=== PATIENT | male | born 1940 | race Caucasian/White ===

== ENCOUNTER 2016-04-07 05:42 | Emergency (ER) | payer OTHER ==
[~2016-04-07] VITALS: Ht 172.7 cm; Wt 95.5 kg
[~2016-04-07 05:42] MED LIST: ALLO300 PO; APRI0.372 PO; CARD120C4 PO; CYCL1TAB29 PO; FURO20TA PO; GABA300C5 PO; GLIP5TAB8 PO; GUAI400T8 PO; HYDR-3366 PO; IPRAAER INH; IPRASOL NEB; LOVA40TA PO; OMEP20TA PO; PRED20 PO; PRIM50TA5 PO; TEMA15CA PO
[2016-04-07 05:43] VITALS: BP 124/71; PULSE 104; RESP 16; TEMP 98; O2SAT 92
[2016-04-07 06:42] VITALS: BP 135/63; PULSE 89; RESP 22; O2SAT 98
[2016-04-07] MEDS ORDERED: BENA25TA3 PO (07:54)
[2016-04-07] MEDS ORDERED: PRED20 PO (07:54)
--- NOTE | 2016-04-07 07:54 | PD ---
HPI Chief Complaint: Skin Problem Time Seen by Provider: 07:30 Travel History International Travel<30 days: No Contact w/Intl Traveler<30days: No Traveled to known affect area: No History of Present Illness HPI 76-year-old man who presents to the emergency department complaining of pruritic rash. 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 Received a couple doses of chemotherapy through the port, and is given a follow- up with hematology as an outpatient. He developed this pruritic red rash couple days ago. Initially started around the port and then spread widely. His last chemotherapy was the . He is following up with oncology on the second. He otherwise has been feeling generally well. No fevers. No change in baseline cough or trouble breathing. History Past Medical History Narrative Medical Right lung mass, small cell lung CA, bone metastases on imaging COPD Diabetes Hypertension Neuropathy BPH Social History Alcohol Use: No Tobacco Use: No Allergies-Medications (Allergen,Severity, Reaction): Coded Allergies: No Known Allergies (Unverified , 04/07/16) Reported Meds & Prescriptions Reported Meds & Active Scripts Active Zyloprim (Allopurinol) 300 Mg Tab 300 Mg PO BID Prednisone 20 Mg Tab 20 Mg PO DAILY Furosemide 20 Mg Tab 20 Mg PO DAILY Cardizem CD 24 HR (Diltiazem CD 24 HR) 120 Mg Caper 120 Mg PO DAILY Reported Temazepam 15 Mg Cap 15 Mg PO HS PRN Primidone 50 Mg Tab 50 Mg PO TID Omeprazole 20 Mg Tab 20 Mg PO DAILY Apriso (Mesalamine) 0.375 Gm Caper 1.5 Gm PO DAILY Lovastatin 40 Mg Tab 40 Mg PO DAILY [place] (Hydrocodone-Acetaminophen) 10-325 Mg Tab 1 Tab PO TID PRN Guaifenesin 400 Mg Tab 400 Mg PO TID Glipizide 5 Mg Tab 5 Mg PO DAILY Take 30 minutes before a meal Gabapentin 300 Mg Cap 600 Mg PO TID Flexeril (Cyclobenzaprine HCl) 10 Mg Tab 10 Mg PO TID Duoneb (Ipratropium-Albuterol Neb) 0.5-2.5 Mg/3 Ml Neb 1 Vial NEB Q6HR PRN Combivent Respimat Inh (Ipratropium-Albuterol Inh) 20-100 Intermediate/Act Aero 1 Puff INH QID Review of Systems Except as stated in HPI: all other systems reviewed are Neg Physical Exam Narrative GENERAL: Well-appearing 76-year-old man, no acute distress. SKIN: Warm and dry. Widespread urticarial rash involving the chest extremities and back, somewhat concentrated around the area of the report. Very pruritic. No vesicles pustules or other abnormality. HEAD: Atraumatic. Normocephalic. CARDIOVASCULAR: Regular rate and rhythm. No murmur appreciated. RESPIRATORY: No accessory muscle use. Clear to auscultation. Breath sounds equal bilaterally. GASTROINTESTINAL: Abdomen soft, non-tender, nondistended. Hepatic and splenic margins not palpable. MUSCULOSKELETAL: No obvious deformities. No edema. NEUROLOGICAL: Awake and alert. No obvious cranial nerve deficits. Motor grossly within normal limits. Normal speech. PSYCHIATRIC: Appropriate mood and affect; insight and judgment normal. Data Data Last Documented VS Vital Signs Date Time Temp Pulse Resp B/P Pulse Ox O2 Delivery O2 Flow Rate FiO2 04/07/16 06:42 89 22 135/63 98 Room Air 04/07/16 05:43 98.0 MDM Medical Decision Making Medical Screen Exam Complete: Yes Emergency Medical Condition: Yes Differential Diagnosis Urticaria, infection, vasculitis, other Narrative Course Medical decision making 76-year-old male with pruritic urticarial rash on his trunk and extremities. Suspect allergic reaction. We'll treat antihistamines and steroids. He has an appointment with his oncologist on Saturday. Return to the emergency department for any new or worsening symptoms. Diagnosis Primary Impression: Urticaria Additional Instructions: Take prednisone as prescribed. Take Benadryl as prescribed. Follow-up with your oncologist on Saturday. Return to the emergency department for any fevers or chills, if the rash changes character at all or develops blisters or pustules, or if he developed any new or worsening symptoms. Med/Other Pt SpecificInfo: Prescription(s) given Scripts Diphenhydramine (Benadryl Allergy)25 Mg Tab50 Mg PO Q8HR PRN (ALLERGIES) #20 TAB Ref 0 Prov:Henry Daley MD 04/07/16 Prednisone 20 Mg Tab20 Mg PO BID 5 Days Ref 0 Prov:Henry Daley MD 04/07/16 Disposition: 01 DISCHARGE HOME Condition: Stable Henry Daley MD Apr 07, 2016 07:54
[2016-04-07 08:00] VITALS: BP 137/65; PULSE 84; RESP 17; O2SAT 96
[2016-04-07] MEDS ORDERED: methylPREDNISolone SOD SUCC 125 MG/2 ML VIAL IM SCH (09:00)
== END 2016-04-07 09:08 | disposition home or self-care (01) ==
LOC: NEPC 05:42
DX: L50.9 Urticaria, unspecified (principal); J44.9 Chronic obstructive pulmonary disease, unspecified; I10 Essential (primary) hypertension; C34.91 Malignant neoplasm of unspecified part of right bronchus or lung; C79.51 Secondary malignant neoplasm of bone
CPT/HCPCS: 96372; 99282; J2930

== ENCOUNTER 2016-06-07 16:36 | Emergency (ER) | payer OTHER ==
[~2016-06-07] VITALS: Ht 172.7 cm; Wt 94.0 kg
[~2016-06-07 16:36] MED LIST changes: +BENA25TA3 PO
[2016-06-07 16:39] VITALS: BP 147/69; PULSE 99; RESP 18; TEMP 98.1; O2SAT 95
[2016-06-07] MEDS ORDERED: SODIUM CHLOR 0.9% 1000 ML INJ 1,000 ML IV SCH (17:40)
[2016-06-07 17:43] VITALS: O2SAT 98
--- NOTE | 2016-06-07 17:43 | PD ---
HPI Chief Complaint: Flank/Kidney Pain Time Seen by Provider: 17:13 Travel History International Travel<30 days: No Contact w/Intl Traveler<30days: No Traveled to known affect area: No History of Present Illness HPI This is a 76-year-old male who has a history of metastatic small cell lung cancer on chemotherapy who presents to the emergency department with right sided flank pain and abdominal pain that started 2 days ago, constant, worsening , described as a sharp pain that goes from his back into his right abdomen. He says the pain is worse with movement and with taking deep breaths. It improved with rest. He denies any associated nausea, vomiting, fevers, chills or diarrhea. He did have chemotherapy one week ago. He has never Had kidney stones. He has no history of abdominal surgery. PFSH Past Medical History Cancer: Yes (SMALL CELL LUNG CANCER) Chemotherapy: Yes (03/24/16) Congestive Heart Failure: No COPD: Yes Coronary Artery Disease: No Diabetes: Yes Patient Takes Glucophage: Yes Diminished Hearing: No Hypertension: Yes Implanted Vascular Access Dvce: Yes (PORT RIGHT CHEST) Neurologic: Yes (NEUROPATHY) Ulcer: Yes Influenza Vaccination: Yes Past Surgical History Other Surgery: Yes (PORT PLACED TO RIGHT CHEST) Social History Alcohol Use: No Tobacco Use: No Substance Use: No Allergies-Medications (Allergen,Severity, Reaction): Coded Allergies: No Known Allergies (Unverified , 06/07/16) Reported Meds & Prescriptions Reported Meds & Active Scripts Active Benadryl Allergy (Diphenhydramine HCl) 25 Mg Tab 50 Mg PO Q8HR PRN Prednisone 20 Mg Tab 20 Mg PO BID 5 Days Zyloprim (Allopurinol) 300 Mg Tab 300 Mg PO BID Prednisone 20 Mg Tab 20 Mg PO DAILY Furosemide 20 Mg Tab 20 Mg PO DAILY Cardizem CD 24 HR (Diltiazem CD 24 HR) 120 Mg Caper 120 Mg PO DAILY Reported Temazepam 15 Mg Cap 15 Mg PO HS PRN Primidone 50 Mg Tab 50 Mg PO TID Omeprazole 20 Mg Tab 20 Mg PO DAILY [place] (Mesalamine) 0.375 Gm Caper 1.5 Gm PO DAILY Lovastatin 40 Mg Tab 40 Mg PO DAILY [place] (Hydrocodone-Acetaminophen) 10-325 Mg Tab 1 Tab PO TID PRN Guaifenesin 400 Mg Tab 400 Mg PO TID Glipizide 5 Mg Tab 5 Mg PO DAILY Take 30 minutes before a meal Gabapentin 300 Mg Cap 600 Mg PO TID Flexeril (Cyclobenzaprine HCl) 10 Mg Tab 10 Mg PO TID Duoneb (Ipratropium-Albuterol Neb) 0.5-2.5 Mg/3 Ml Neb 1 Vial NEB Q6HR PRN Combivent Respimat Inh (Ipratropium-Albuterol Inh) 20-100 [place]/Act Aero 1 Puff INH QID Review of Systems Except as stated in HPI: all other systems reviewed are Neg Physical Exam Narrative GENERAL:Well appearing, no acute distress SKIN: Warm and dry. HEAD: Atraumatic. Normocephalic. EYES: Pupils equal and round. No injection or drainage. ENT: Moist mucous membranes NECK: Trachea midline. CARDIOVASCULAR: Regular rate and rhythm. No murmur appreciated. RESPIRATORY: Clear to auscultation. Breath sounds equal bilaterally. GASTROINTESTINAL: Abdomen soft, tender to palpation in the right upper quadrant and right lower quadrants with some guarding : Right CVA tenderness MUSCULOSKELETAL: No obvious deformities. NEUROLOGICAL: Awake and alert. No obvious cranial nerve deficits. Moving all extremities. PSYCHIATRIC: Appropriate mood and affect; insight and judgment normal. Data Data Last Documented VS Vital Signs Date Time Temp Pulse Resp B/P Pulse Ox O2 Delivery O2 Flow Rate FiO2 06/07/16 17:43 98 Room Air 06/07/16 16:39 98.1 99 18 147/69 Orders Complete Blood Count With Diff (06/07/16 17:40) Comprehensive Metabolic Panel (06/07/16 17:40) Urinalysis - C+S If Indicated (06/07/16 17:40) Ct Abd/Pel W Iv Contrast(Rout) (06/07/16 17:40) Iv Access Insert/Monitor (06/07/16 17:40) Ecg Monitoring (06/07/16 17:40) Oximetry (06/07/16 17:40) Morphine Inj (Morphine Inj) (06/07/16 17:45) Ondansetron Inj (Zofran Inj) (06/07/16 17:45) Sodium Chlor 0.9% 1000 Ml Inj (Ns 1000 M (06/07/16 17:40) Sodium Chloride 0.9% Flush (Ns Flush) (06/07/16 17:45) Iohexol 350 Inj (Omnipaque 350 Inj) (06/07/16 19:04) Labs Laboratory Tests Test 06/07/16 17:57 White Blood Count 13.5 TH/MM3 Red Blood Count 2.55 MIL/MM3 Hemoglobin 7.4 GM/DL Hematocrit 23.0 % Mean Corpuscular Volume 90.1 FL Mean Corpuscular Hemoglobin 29.1 PG Mean Corpuscular Hemoglobin 32.3 % Concent Red Cell Distribution Width 20.4 % Platelet Count 123 TH/MM3 Mean Platelet Volume 8.2 FL Neutrophils (%) (Auto) 66.6 % Lymphocytes (%) (Auto) 22.9 % Monocytes (%) (Auto) 9.3 % Eosinophils (%) (Auto) 0.1 % Basophils (%) (Auto) 1.1 % Neutrophils # (Auto) 9.0 TH/MM3 Lymphocytes # (Auto) 3.1 TH/MM3 Monocytes # (Auto) 1.3 TH/MM3 Eosinophils # (Auto) 0.0 TH/MM3 Basophils # (Auto) 0.1 TH/MM3 CBC Comment DIFF FINAL Differential Comment Sodium Level 136 MEQ/L Potassium Level 3.3 MEQ/L Chloride Level 101 MEQ/L Carbon Dioxide Level 26.9 MEQ/L Anion Gap 8 MEQ/L Blood Urea Nitrogen 15 MG/DL Creatinine 0.83 MG/DL Estimat Glomerular Filtration 90 ML/MIN Rate Random Glucose 190 MG/DL Calcium Level 8.2 MG/DL Total Bilirubin 0.2 MG/DL Aspartate Amino Transf 7 U/L (AST/SGOT) Alanine Aminotransferase 14 U/L (ALT/SGPT) Alkaline Phosphatase 166 U/L Total Protein 6.6 GM/DL Albumin 2.9 GM/DL [facility] Medical Decision Making Medical Screen Exam Complete: Yes Emergency Medical Condition: Yes Interpretation(s) Afebrile, mild tachycardia, hypertensive Leukocytosis unchanged from yesterday Anemia similar to prior Mild hypokalemia Last 24 hours Impressions Abdomen/Pelvis CT 06/07/16 [id number] Signed Impressions: Service Date/Time: May 19:00 - CONCLUSION: 1. Widespread osseous blastic metastases. I'm also concerned there are small hepatic metastatic lesions. Focal pathologic fracture superior endplate of T12. 2. Abdominal aortic aneurysm measuring up to 4.7 cm in size. There is chronic appearing mural thrombus. No findings to support leak or imminent rupture. Deondre Agrawal MD Differential Diagnosis Cholecystitis, appendicitis, obstructive uropathy, nephrolithiasis, referred pain Narrative Course This is a 76-year-old male who was a history of metastatic small cell lung cancer on chemotherapy by Dr. Ann who presents to the emergency department with right sided back and abdominal pain. He was placed in a monitor and an IV was established. He was given IV opiates for pain. His labs are similar to prior. CT imaging demonstrates a focal pathologic fracture at the superior endplate of T12 as well as small hepatic metastatic lesions both of which could be the etiology of the patient's pain. We discussed a TLSO brace but the patient is active and would prefer to try management without the brace which I think is reasonable as this appears to be a stable fracture. Patient will be discharged with oxycodone for pain and was asked to follow-up with his oncologist as soon as possible. The patient does have an abdominal aortic aneurysm which appears chronic and does not appear to be the etiology of this pain. In light of the patient's metastatic cancer certainly risks versus benefits of repair will need to be discussed in the outpatient setting. Diagnosis Primary Impression: Closed T12 fracture Qualified Code: S22.088A - Other closed fracture of twelfth thoracic vertebra , initial encounter Additional Impressions: Hepatic metastases Aortic aneurysm Qualified Code: I71.4 - Abdominal aortic aneurysm (AAA) without rupture Referrals: Ethan Abrams MD call for appointment If you decide to have your aortic aneurysm evaluated, you should follow up with vascular surgery. Prosper Hall MD call for appointment neurosurgery regarding your T12 fracture. Discuss with Dr. Ann if radiation oncology is more appropriate. Patient Instructions: General Instructions Additional Instructions: If you develop numbness, weakness, difficulty walking, or severe pain return to the emergency room. Follow-up with Dr. Ann as soon as possible. You have a pathologic fracture of the superior endplate of T12. You also appear to have small metastatic lesions in your liver on CT. You have an abdominal aortic aneurysm that appears chronic and is 4.7 cm in size. All of these findings need to be followed up as an outpatient. Med/Other Pt SpecificInfo: Prescription(s) given, Existing Med Changed ( stop hydrocodone if taking oxycodone.) Scripts Oxycodone 5 Mg Cap5-10 Mg PO Q4H PRN (PAIN) #20 CAP Ref 0 Prov:Ev Schmidt MD 06/07/16 Disposition: 01 DISCHARGE HOME Condition: Stable Ev Schmidt MD Jun 07, 2016 17:43
[2016-06-07] MEDS ORDERED: SODIUM CHLORIDE 0.9% FLUSH 5 ML FLUSH IVF PRN (17:45)
[2016-06-07] MEDS ORDERED: MORPHINE SULFATE 4 MG/ML INJ IV PUSH ONE (17:45)
[2016-06-07] MEDS ORDERED: ONDANSETRON HCL 4 MG/2 ML VIAL IVP ONE (17:45)
[2016-06-07 18:15] LABS: BASOPHIL # 0.1 TH/MM3 (0-0.2); BASOPHIL % 1.1 % (0.0-2.0); EOSINOPHIL % 0.1 % (0.0-4.0); HEMO FLAGS DIFF FINAL; LYMPH % 22.9 % (9.0-44.0); LYMPHOCYTE # 3.1 TH/MM3 (1.0-4.8); MEAN CELL VOLUME 90.1 FL (80.0-100.0); MEAN CORPUSCULAR HEMOGLOBIN 29.1 PG (27.0-34.0); MEAN CORPUSCULAR HGB CONC 32.3 % (32.0-36.0); MONO % 9.3 % (0.0-8.0); NEUT % 66.6 % (16.0-70.0); PLATELET COUNT 123 TH/MM3 (150-450); RED BLOOD COUNT 2.55 MIL/MM3 (4.50-5.90); RED CELL DISTRIBUTION WIDTH 20.4 % (11.6-17.2); WHITE BLOOD COUNT 13.5 TH/MM3 (4.0-11.0)
[2016-06-07 18:33] LABS: ANION GAP 8 MEQ/L (5-15); AST (GOT) 7 U/L (15-37); BICARBONATE 26.9 MEQ/L (21.0-32.0); BLOOD UREA NITROGEN 15 MG/DL (7-18); CHLORIDE 101 MEQ/L (98-107); GLOMERULAR FILTRATION RATE 90 ML/MIN (>89); POTASSIUM 3.3 MEQ/L (3.5-5.1); SODIUM (NA) 136 MEQ/L (136-145)
[2016-06-07 18:36] LABS: ALKALINE PHOSPHATASE 166 U/L (45-117); ALT (GPT) 14 U/L (12-78); TOTAL BILIRUBIN ADULT 0.2 MG/DL (0.2-1.0)
[2016-06-07] MEDS ORDERED: IOHEXOL 350 MG/ML 10 ML VIAL (for RAD DIAG) IV ONE (19:04)
--- NOTE | 2016-06-07 19:21 | RADRPT ---
EXAM DATE/TIME: 06/07/2016 19:00 [facility] COMPARISON: CT PULMONARY ANGIOGRAM, March 13, 2016, 3:45. INDICATIONS : Right flank pain and urinary retention. IV CONTRAST: 100 cc Omnipaque 350 (iohexol) IV ORAL CONTRAST: No oral contrast ingested. RADIATION DOSE: 16.45 CTDIvol (mGy) MEDICAL HISTORY : Carcinoma, lung. Hypertension. Chronic obstructive pulmonary disease. SURGICAL HISTORY : None. ENCOUNTER: Initial ACUITY: 1 day PAIN SCALE: 10/10 LOCATION: Right flank TECHNIQUE: Volumetric scanning of the abdomen and pelvis was performed. Using automated exposure control and ad justment of the mA and/or kV according to patient size, radiation dose was kept as low as reasonably achievable to obtain optimal diagnostic quality images. FINDINGS: LOWER LUNGS: Patchy tree in bud type consolidation seen in the right lung base. No effusion. LIVER: Numerous scattered hypodensities are seen throughout the liver measuring between 3 and 13 mm in size. Most are fairly vague in appearance and seem more conspicuous than on the CT pulmonary angiogram don e previously. SPLEEN: Normal size without lesion. PANCREAS: Within normal limits. KIDNEYS: Normal in size and shape. There is no mass, stone or hydronephrosis. ADRENAL GLANDS: Within normal limits. VASCULAR: There is a 4.7 cm infrarenal abdominal aortic aneurysm with prominent mural thrombus. No inflammatory changes or periaortic edema. The aneurysm is approximately 10.2 cm in length and inferior margin inv olve the bifurcation. BOWEL/MESENTERY: The stomach, small bowel, and colon demonstrate no acute abnormality. There is no free intraperitone al air or fluid. ABDOMINAL WALL: Within normal limits. RETROPERITONEUM: There is no lymphadenopathy. BLADDER: No wall thickening or mass. REPRODUCTIVE: Enlarged prostate. INGUINAL: There is no lymphadenopathy or hernia. MUSCULOSKELETAL: Numerous sclerotic metastases are seen throughout the visualized osseous structures. Lesions range be tween 5 and 20 mm in size. There is focal endplate destruction and a pathologic fracture involving th e superior endplate of T12, right of midline.. CONCLUSION: 1. Widespread osseous blastic metastases. I'm also concerned there are small hepatic metastatic lesio ns. Focal pathologic fracture superior endplate of T12. 2. Abdominal aortic aneurysm measuring up to 4.7 cm in size. There is chronic appearing mural thrombu s. No findings to support leak or imminent rupture. Deondre Agrawal MD on June 07, 2016 at 19:10 Board Certified Radiologist. This report was verified electronically.
[2016-06-07] MEDS ORDERED: OXYC1CAP PO (20:01)
== END 2016-06-07 20:46 | disposition home or self-care (01) ==
LOC: NEPA 16:36
DX: M84.58XA Pathological fracture in neoplastic disease, other specified site, initial encounter for fracture (principal); I71.4 Abdominal aortic aneurysm, without rupture; R00.0 Tachycardia, unspecified; E87.6 Hypokalemia; C34.91 Malignant neoplasm of unspecified part of right bronchus or lung; D72.829 Elevated white blood cell count, unspecified; C79.51 Secondary malignant neoplasm of bone; R33.9 Retention of urine, unspecified; E11.9 Type 2 diabetes mellitus without complications; J44.9 Chronic obstructive pulmonary disease, unspecified; I10 Essential (primary) hypertension; Z79.899 Other long term (current) drug therapy
CPT/HCPCS: 74177; 80053; 85025; 96361; 96374; 96375; 99284; J1642; J2270; J2405; J7030; Q9967